=== PATIENT | female | born 1985 | race Caucasian/White ===

== ENCOUNTER → 2017-02-06 | Outpatient (CLI) | payer OTHER ==
[~2017-02-06] MED LIST: FERR325T3 PO; IBUP80TA PO; MOM30SS PO; PERCOCET PO; VITAPRTA PO
[2017-02-06 19:58] LABS: BASO % 0.5 % (0.0-1.0); EOS # 0.1 10^3/uL (0.0-0.50); EOS % 1.9 % (0.0-3.0); IMMATURE GRANULOCYTE % 0.3 % (0-0); LYMPH % 31.5 % (24.0-44.0); MEAN CORPUSCULAR HEMOGLOBIN 30.2 pg (27.0-33.0); MEAN CORPUSCULAR HGB CONC 33.4 g/dl (32.0-36.5); MEAN CORPUSCULAR VOLUME 90.3 fl (80.0-96.0); MONO # 0.6 10^3/uL (0.0-0.8); MONO % 8.8 % (0.0-5.0); NEUTROPHILS # 3.6 10^3/uL (1.8-7.7); PLATELET COUNT, AUTOMATED 259 10^3/uL (150-450); RED CELL DISTRIBUTION WIDTH 11.6 % (11.5-14.5); WHITE BLOOD COUNT 6.3 10^3/uL (4.0-10.0)
[2017-02-08 11:06] LABS: HBsAg Prenatal NEGATIVE (NEGATIVE)
== END ==
LOC: M WUC 16:12
PROVIDERS: ATTEND Obstetrics & Gynecology
DX: Z34.81 Encounter for supervision of other normal pregnancy, first trimester (principal); Z3A.00 Weeks of gestation of pregnancy not specified

== ENCOUNTER → 2017-03-07 | Outpatient (CLI) | payer OTHER ==
--- NOTE | 2017-03-07 15:00 | REP ---
Urinary tract sonogram: History: Left flank pain. Low back and pelvic and perineal pain. Comparison: Comparison CT study May 07, 2013. Findings: Scanning at the level of the urinary bladder shows no abnormality. Renal cortical echogenicity pattern is normal bilaterally and contours are smooth. There is no evidence of hydronephrosis, cyst, mass, or calculus in either kidney. The right kidney measures 9.7 x 5.2 x 3.0 cm. Left renal dimensions are 9.8 x 4.4 x 3.9 cm. Impression: Normal urinary tract sonography. Signed by Lalo Lozada MD 03/07/2017 02:52 P
== END ==
LOC: M RAD 13:25
PROVIDERS: ATTEND Obstetrics & Gynecology
DX: R10.9 Unspecified abdominal pain (principal)

== ENCOUNTER 2017-03-14 12:20 | Emergency (ER) | payer OTHER ==
[~2017-03-14] VITALS: Ht 160 cm; Wt 61.4 kg
[2017-03-14] MEDS ORDERED: NS 1,000 ML IV ONE (15:00)
[2017-03-14 15:41] LABS: BASO # 0.1 10^3/uL (0.0-0.2); BASO % 0.7 % (0.0-1.0); EOS # 0.1 10^3/uL (0.0-0.50); EOS % 1.8 % (0.0-3.0); IMMATURE GRANULOCYTE % 0.3 % (0-0); LYMPH # 2.5 10^3/uL (1.5-4.5); LYMPH % 36.4 % (24.0-44.0); MEAN CORPUSCULAR HEMOGLOBIN 29.9 pg (27.0-33.0); MEAN CORPUSCULAR HGB CONC 33.7 g/dl (32.0-36.5); MEAN CORPUSCULAR VOLUME 88.8 fl (80.0-96.0); MONO # 0.5 10^3/uL (0.0-0.8); NEUTROPHILS # 3.6 10^3/uL (1.8-7.7); NEUTROPHILS % 53.8 % (36.0-66.0); PLATELET COUNT, AUTOMATED 231 10^3/uL (150-450); RED CELL DISTRIBUTION WIDTH 11.9 % (11.5-14.5); WHITE BLOOD COUNT 6.7 10^3/uL (4.0-10.0)
[2017-03-14 15:43] LABS: CONTROL LINE UCG INT CTR LINE PRESENT
[2017-03-14 15:56] LABS: CONTROL LINE HCG INT CTR LINE PRESENT
[2017-03-14 16:02] LABS: ALBUMIN 3.9 GM/DL (3.2-5.2); ALBUMIN/GLOBULIN RATIO 1.22 (1.00-1.93); ALKALINE PHOSPHATASE 49 U/L (45-117); ALT/SGPT 15 U/L (12-78); ANION GAP 7 MEQ/L (8-16); AST/SGOT 13 U/L (7-37); BILIRUBIN,DIRECT < 0.1 MG/DL (0.0-0.2); BILIRUBIN,TOTAL 0.2 MG/DL (0.2-1.0); BLOOD UREA NITROGEN 18 MG/DL (7-18); CALCIUM LEVEL 8.7 MG/DL (8.5-10.1); CARBON DIOXIDE LEVEL 27 MEQ/L (21-32); CHLORIDE LEVEL 103 MEQ/L (98-107); CREATININE FOR GFR 0.83 MG/DL (0.55-1.02); GLOMERULAR FILTRATION RATE > 60.0 (>60); GLUCOSE, FASTING 83 MG/DL (70-105); SODIUM LEVEL 137 MEQ/L (136-145); TOTAL PROTEIN 7.1 GM/DL (6.4-8.2)
[2017-03-14] MEDS ORDERED: ISOVUE-370 76% 100ML VIAL (Q9967) As Ordered ONE (16:04)
--- NOTE | 2017-03-14 16:41 | REP ---
Clinical: Left lower quadrant pain. Comparison: 05/07/2013. Technique: Axial contrast enhanced images from the lung bases to the pubic symphysis using 100 ml Isovue 370 intravenous contrast material with coronal and sagittal re-formations. Findings: Lung bases are clear. Visualized heart and pericardium are normal. Liver, spleen, pancreas, gallbladder, right adrenal gland and bilateral kidneys are normal. The patient is status post left adrenalectomy. The enteric system is without obstruction or definite acute inflammatory process. Normal terminal ileum and appendix are identified in the right lower quadrant. Few sigmoid diverticula are suggested without acute diverticulitis. Evaluation of the pelvis demonstrates an enlarged complex multicystic appearance to the left ovary measuring greater than 4.8 cm diameter and possibly related to patient's symptoms. The uterus and left ovary appear relatively normal. The bladder is unremarkable. No pelvic fluid or ascites. No significant adenopathy. No free air. Abdominal aorta and vasculature appears normal. Surrounding musculoskeletal structures are intact. Impression: 1. Complex cystic enlarged right adnexa measuring 4.8 cm diameter may be related to patient's symptoms and should be correlated clinically. Consider pelvic ultrasound if necessary. 2. Otherwise normal contrast enhanced CT of the abdomen and pelvis. No free fluid. No adenopathy. Evidence of prior left adrenalectomy. Signed by Eugenio Pope MD 03/14/2017 04:33 P
[2017-03-14 17:45] VITALS: BP 125/75
[2017-03-14] MEDS ORDERED: PERC5TAB12 PO (17:45)
--- NOTE | 2017-03-14 19:11 | REP ---
REASON FOR EXAM: Pain. The uterus measures 11 x 5.3 x 5.6 cm. The endometrial echo complex measure 7 mm. The right ovary measures 5.3 x 5.4 x 4.4 cm. In the right ovary there is a 3.5 x 3.8 x 3.1 cm sized mixed echo structure suggestive of a hemorrhagic cyst. The right ovarian RI is 0.56. Left ovary measures 4.5 x 2.3 x 2.6 cm and is within normal limits with an RI of 0.67. IMPRESSION: Suspected right ovarian hemorrhagic cyst as described above. Signed by Berhane Edwards DO 03/14/2017 07:44 P
== END 2017-03-14 18:01 | disposition home or self-care (01) ==
LOC: M ED 12:20
DX: N83.202 Unspecified ovarian cyst, left side (principal); I10 Essential (primary) hypertension; Z88.2 Allergy status to sulfonamides; Z88.1 Allergy status to other antibiotic agents
CPT/HCPCS: 74177; 76856; 80048; 80076; 81001; 83605; 83690; 84703; 85025; 87086; 93976; 96360; 96361; 99284; Q9967

== ENCOUNTER → 2017-12-06 | Outpatient (CLI) | payer BC | LOC: M WUC 12:11 | DX: R06.02 Shortness of breath (principal) | CPT/HCPCS: 71046 ==

== ENCOUNTER → 2017-12-23 | Outpatient (CLI) | payer BC ==
[2017-12-23 20:43] LABS: HCG, SERUM QUANTITATIVE 142 MIU/ML
== END ==
LOC: M WUC 16:09
DX: Z32.01 Encounter for pregnancy test, result positive (principal)
CPT/HCPCS: 84702

== ENCOUNTER → 2018-03-10 | Outpatient (CLI) | payer BC ==
[2018-03-10 18:23] LABS: BASO % 0.3 % (0.0-1.0); EOS # 0.2 10^3/uL (0.0-0.50); EOS % 2.5 % (0.0-3.0); HEMOGLOBIN 11.8 g/dl (12.0-15.5); IMMATURE GRANULOCYTE % 0.7 % (0-3.0); LYMPH % 22.6 % (24.0-44.0); MEAN CORPUSCULAR HEMOGLOBIN 30.3 pg (27.0-33.0); MEAN CORPUSCULAR HGB CONC 32.8 g/dl (32.0-36.5); MEAN CORPUSCULAR VOLUME 92.3 fl (80.0-96.0); MONO # 0.5 10^3/uL (0.0-0.8); MONO % 6.2 % (0.0-5.0); NEUTROPHILS # 5.9 10^3/uL (1.8-7.7); NEUTROPHILS % 67.7 % (36.0-66.0); PLATELET COUNT, AUTOMATED 235 10^3/uL (150-450); RED CELL DISTRIBUTION WIDTH 12.2 % (11.5-14.5); WHITE BLOOD COUNT 8.7 10^3/uL (4.0-10.0)
[2018-03-10 22:30] LABS: CHLAMYDIA DNA AMPLIFICATION NEGATIVE (NEGATIVE); GC DNA AMPLIFICATION NEGATIVE (NEGATIVE)
[2018-03-12 11:03] LABS: HEPATITIS C VIRUS ABY INDEX 0.1 INDEX (<0.8)
[2018-03-12 11:03] LABS: HBsAg Prenatal NEGATIVE (NEGATIVE); HIV 1&2 SCREEN CENTAUR NEGATIVE (NEGATIVE); RUBELLA IgG QUALITATIVE IMMUNE (IMMUNE)
== END ==
LOC: M WUC 14:17
DX: Z36.89 Encounter for other specified antenatal screening (principal)
CPT/HCPCS: 86762

== ENCOUNTER → 2018-04-11 | Outpatient (CLI) | payer BC | LOC: M RAD 12:22 | DX: Z36.89 Encounter for other specified antenatal screening (principal); Z3A.19 19 weeks gestation of pregnancy | CPT/HCPCS: 76811 ==

== ENCOUNTER → 2018-05-26 | Outpatient (CLI) | payer BC ==
[~2018-05-26] MED LIST changes: +PERC5TAB12 PO
--- NOTE | 2018-05-26 17:51 | REP ---
Clinical: Anatomical evaluation. Comparison: 04/11/2018 . Findings: Examination demonstrates a single live intrauterine in cephalic presentation. motion is identified by technologist. Placenta is noted anterior and grade I without evidence for placenta previa or abruption. Amniotic fluid volume is normal. Cervix measures 4.9 cm in length and appears closed. No evidence for nuchal cord. Gestational age by LMP 25 weeks 5 days with JOSEPH 09/03/2018 . Gestational age by current measurements 26 weeks 0 days with JOSEPH 09/01/2018 FHR equals 135 beats per minute. Estimated weight 872 grams ( 49th percentile). Anatomical assessment demonstrates normal structures including cranium, choroid plexus, cavum, cerebellum/posterior fossa, facial features, lungs, four-chamber heart/ventricular outflow tracts, diaphragm, stomach, cord insertion/three-vessel cord, bladder, and extremities. Impression: Single live intrauterine in cephalic presentation demonstrating appropriate interval growth. In conjunction with prior examination anatomical assessment is complete and normal. No gross abnormalities are identified. Electronically Signed by Eugenio Pope MD 05/26/2018 05:43 P
== END ==
LOC: M RAD 16:20
PROVIDERS: ATTEND Advanced Practice Midwife
DX: O34.211 Maternal care for low transverse scar from previous cesarean delivery (principal); Z3A.25 25 weeks gestation of pregnancy

== ENCOUNTER → 2018-06-05 | Outpatient (CLI) | payer BC ==
[2018-06-05 20:05] LABS: HEMATOCRIT 32.5 % (36.0-47.0); MEAN CORPUSCULAR HEMOGLOBIN 31.2 pg (27.0-33.0); MEAN CORPUSCULAR HGB CONC 33.8 g/dl (32.0-36.5); MEAN CORPUSCULAR VOLUME 92.1 fl (80.0-96.0); PLATELET COUNT, AUTOMATED 228 10^3/uL (150-450); RED BLOOD COUNT 3.53 10^6/uL (4.00-5.40); WHITE BLOOD COUNT 11.4 10^3/uL (4.0-10.0)
== END ==
LOC: M WUC 15:13
PROVIDERS: ATTEND Advanced Practice Midwife
DX: O34.211 Maternal care for low transverse scar from previous cesarean delivery (principal)

== ENCOUNTER → 2018-07-14 | Outpatient (CLI) | payer BC ==
[2018-07-14 13:49] LABS: ALBUMIN 2.6 GM/DL (3.2-5.2); ALT/SGPT 18 U/L (12-78); BILIRUBIN,TOTAL 0.2 MG/DL (0.2-1.0); BLOOD UREA NITROGEN 10 MG/DL (7-18); CALCIUM LEVEL 7.7 MG/DL (8.5-10.1); CARBON DIOXIDE LEVEL 23 MEQ/L (21-32); CHLORIDE LEVEL 108 MEQ/L (98-107); CREATININE FOR GFR 0.65 MG/DL (0.55-1.30); FREE T4 0.93 NG/DL (0.76-1.46); GLOMERULAR FILTRATION RATE > 60.0 (>60); GLUCOSE, FASTING 84 MG/DL (70-100); POTASSIUM SERUM 4.1 MEQ/L (3.5-5.1); SODIUM LEVEL 138 MEQ/L (136-145); TOTAL PROTEIN 5.6 GM/DL (6.4-8.2)
== END ==
LOC: M WUC 10:47
PROVIDERS: ATTEND Obstetrics & Gynecology
DX: Z34.83 Encounter for supervision of other normal pregnancy, third trimester (principal)

== ENCOUNTER → 2018-08-07 | Outpatient (REF) | payer BC | LOC: M LAB REF 17:11 | PROVIDERS: ATTEND Advanced Practice Midwife | DX: Z34.83 Encounter for supervision of other normal pregnancy, third trimester (principal) ==

== ENCOUNTER → 2018-08-07 | Outpatient (CLI) | payer BC | LOC: M WUC 10:33 | PROVIDERS: ATTEND Advanced Practice Midwife | DX: Z36.89 Encounter for other specified antenatal screening (principal) ==

== ENCOUNTER 2018-08-27 05:43 | Inpatient (IN) | payer BC ==
[2018-08-27] VITALS (8 sets, daily range): BP systolic 109–130; BP diastolic 59–81
[~2018-08-27] VITALS: Ht 160 cm; Wt 77.8 kg
[~2018-08-27 05:43] MED LIST changes: +PRENTAB55 PO; +ZANTTAB PO
[2018-08-27] MEDS: NS 1,000 ML IV SCH ×2 (06:16→07:17)
[2018-08-27] MEDS: LR 1,000 ML IV SCH ×2 (06:16→14:16)
[2018-08-27] MEDS ORDERED: LACTATED RINGER'S 1000 ML IV STA (06:16)
[2018-08-27] MEDS ORDERED: BICITRA 30ML SOLN UDC PO ONE (06:30)
[2018-08-27 06:42] LABS: HEMOGLOBIN 12.2 g/dl (12.0-15.5); MEAN CORPUSCULAR HEMOGLOBIN 30.3 pg (27.0-33.0); MEAN CORPUSCULAR VOLUME 91.8 fl (80.0-96.0); PLATELET COUNT, AUTOMATED 241 10^3/uL (150-450); RED BLOOD COUNT 4.03 10^6/uL (4.00-5.40); WHITE BLOOD COUNT 9.9 10^3/uL (4.0-10.0)
[2018-08-27] MEDS ORDERED: LR 1,000 ML IV ONE (07:30)
[2018-08-27] MEDS ORDERED: METOCLOPRAMIDE INJ 10MG/2ML VIAL (J2765) IV PRN (07:41)
[2018-08-27] MEDS ORDERED: NALOXONE INJ 0.4 MG/1 ML VIAL (J2310) IV PRN ×2 (07:41)
[2018-08-27] MEDS ORDERED: ONDANSETRON 4MG/2ML VIAL (J2405) IV PRN ×2 (07:41→09:30)
[2018-08-27] MEDS ORDERED: NALBUPHINE HCL 10 MG/ML AMP (J2300) IV PRN (07:41)
[2018-08-27] MEDS ORDERED: diphenhydrAMINE INJ 50MG/ML VIAL (J1200) IV PRN (07:41)
[2018-08-27] MEDS ORDERED: ONDANSETRON 4MG/2ML VIAL (J2405) As Ordered ONE (07:53)
[2018-08-27] MEDS ORDERED: BUPIVACAINE/DEXTROSE 0.75% 2 ML AMP As Ordered ONE (07:53)
[2018-08-27] MEDS ORDERED: MORPHINE PRES-FREE INJ 10 MG/10 ML VIAL (J2274) As Ordered ONE (07:53)
[2018-08-27] MEDS ORDERED: ePHEDrine SULFATE 25 MG/5 ML(5MG/ML) SYRINGE As Ordered ONE (07:53)
[2018-08-27] MEDS ORDERED: OXYTOCIN INJ 10 UNITS/ML VIAL (J2590) As Ordered ONE ×2 (07:53→08:42)
[2018-08-27] MEDS ORDERED: PHENYLephrine HCL 500 MCG/5 ML (100MCG/ML) SYRINGE (J2370) As Ordered ONE (07:53)
[2018-08-27] MEDS ORDERED: MEPERIDINE 50 MG/ML 1ML VIAL (J2175) As Ordered ONE (08:33)
[2018-08-27] MEDS ORDERED: OXYTOCIN 30 UNITS IN 0.9% NaCl 500ML IV BAG (J2590) As Ordered ONE (09:12)
[2018-08-27] MEDS ORDERED: LR 1,000 ML IV SCH ×2 (09:30→09:46)
[2018-08-27] MEDS ORDERED: MEPERIDINE INJ 25 MG/ML VIAL (J2175) IV PRN (09:30)
[2018-08-27] MEDS ORDERED: fentaNYL 100 MCG/2 ML INJECTION (J3010) IV PRN (09:30)
[2018-08-27] MEDS ORDERED: KETOROLAC 30 MG/ML VIAL (J1885) IV PRN (09:45)
[2018-08-27] MEDS ORDERED: OXYTOCIN DRIP 30 UNITS in APPROPRIATE DILUENT 1 EA IV SCH (09:46)
[2018-08-27] MEDS ORDERED: MEPERIDINE INJ 25 MG/ML VIAL (J2175) As Ordered ONE (09:49)
[2018-08-27] MEDS ORDERED: MEASLES,MUMPS,RUBELLA VACCINE INJ (MMR-II) (90707) SC SCH (10:00)
[2018-08-27] MEDS ORDERED: PERCOCET 5MG/325MG TAB PO PRN (10:00)
[2018-08-27] MEDS ORDERED: MOM 30ML SUSPENSION UDC PO PRN (10:00)
[2018-08-27] MEDS ORDERED: RHOGAM 300 MCG (1500 IU) INJ (J2790) IM SCH (10:00)
--- NOTE | 2018-08-27 10:43 | RO ---
DATE OF PROCEDURE: 08/27/2018 PREOPERATIVE DIAGNOSIS: 1. History of prior section. 2. Satisfied parity, undesired fertility. POSTOPERATIVE DIAGNOSIS: 1. History of prior section. 2. Satisfied parity, undesired fertility. PROCEDURE PERFORMED: Repeat section with bilateral tubal ligation using [place] method. SURGEON: Marly Palacios MD FLASK MAKER: Kojo Marlow CNM ANESTHESIA: Spinal. ESTIMATED BLOOD LOSS: 700 mL. INTRAVENOUS FLUIDS: 2200 pounds lactated Ringer's solution. URINE OUTPUT: 50 mL. PREOPERATIVE ANTIBIOTICS: 2 grams of Ancef. OPERATIVE FINDINGS: Live born female infant, Apgars 9 and 10, weight was 8 pounds 12 ounces or 3960 grams. SPECIMENS: Bilateral segments of fallopian tube. DESCRIPTION OF OPERATION: After informed consent was obtained and written consent reviewed, the patient was brought to operating room where spinal anesthesia was placed. She was placed inn lithotomy position with left lateral tilt. Lopez catheter was placed set to gravity. She was then prepped and draped in normal sterile fashion. A time out in the operating room was then performed identifying the patient, the procedure to be performed as well as drug allergies. Anesthesia was tested and deemed to be adequate. Next the previous Pfannenstiel skin incision was then excised. The incision was then carried down to the underlying rectus fascia. The fascia was scored and this incision was extended bilaterally. The fascia was then dissected off the underlying rectus muscles both superiorly and inferiorly. The rectus muscles were in the midline. The peritoneum was then entered sharply. The vesicouterine peritoneum was then tented and excised creating a bladder flap. A Mobius retractor was then placed. A curvilinear incision was then made in the lower uterine segment. The incision was extended bilaterally. Amniotomy was then performed productive of clear fluid. The head was then brought to the level of the incision atraumatically and delivered along with shoulders and corpus. Cord was clamped times two and was cut and infant was taken over to the warmer with good cry. Placenta was then removed and the uterus was exteriorized and cleared of all clots and debris. The uterine incision was then closed using two layers of #0 Vicryl, first in a running locking fashion. followed by a second layer for imbrication in a running nonlocking fashion. There were several [id number] stitches placed along the left side of the uterine incision for hemostasis. Next, attention was then turned to the patient's tubal ligation. A window was created in the right mesosalpinx and this area was doubly ligated with #3-0 chromic and was excised with good hemostasis noted. In a similar fashion, the left fallopian tube was placed on traction. A window was created in the mesosalpinx and this area was doubly ligated with #3-0 chromic and the fallopian tube was transected with good hemostasis noted. The uterus was then returned to the patient's abdomen. Surgical sites were inspected and noted be hemostatic. The anterior peritoneum was then reapproximated #0 Vicryl. The rectus muscle was then reapproximated with #3-0 Vicryl. The fascia was then closed with #0 Vicryl in a running nonlocking fashion. The subcutaneous tissue was then irrigated and suctioned. The subcutaneous tissue was then reapproximated with #3-0 Vicryl. Several subdermal stitches were placed with #3-0 Vicryl. The skin was closed with #4-0 Monocryl in subcuticular fashion. The incision was then clean and dry and was dressed. The patient was then taken to recovery in stable condition. Counts were correct. The couple has decided to name their daughter, Penelope. Kojo Marlow, my rn medical surgical, played an essential role during surgery. She assisted with delivery of the , identification of tissue, retraction, as well as, wound closure.
[2018-08-27] MEDS: PERCOCET 5MG/325MG TAB PO PRN ×2 (11:56→22:06)
[2018-08-27] MEDS: IBUPROFEN 800 MG TAB PO SCH (17:37)
[2018-08-27] MEDS: DOCUSATE SODIUM 100 MG CAP PO SCH (22:06)
[2018-08-27] MEDS: SIMETHICONE 80 MG CHEW TAB PO PRN (22:06)
[2018-08-28] VITALS (7 sets, daily range): BP systolic 108–119; BP diastolic 54–65
[2018-08-28] MEDS: IBUPROFEN 800 MG TAB PO SCH ×3 (02:32→18:06)
[2018-08-28] MEDS: SIMETHICONE 80 MG CHEW TAB PO PRN ×3 (06:16→19:55)
[2018-08-28] MEDS: PERCOCET 5MG/325MG TAB PO PRN ×3 (06:16→19:55)
[2018-08-28 07:24] LABS: HEMATOCRIT 29.9 % (36.0-47.0); MEAN CORPUSCULAR HEMOGLOBIN 30.7 pg (27.0-33.0); MEAN CORPUSCULAR HGB CONC 32.8 g/dl (32.0-36.5); MEAN CORPUSCULAR VOLUME 93.7 fl (80.0-96.0); PLATELET COUNT, AUTOMATED 182 10^3/uL (150-450); RED BLOOD COUNT 3.19 10^6/uL (4.00-5.40); WHITE BLOOD COUNT 15.2 10^3/uL (4.0-10.0)
[2018-08-28 07:26] LABS: HEMOGLOBIN 9.8 g/dl (12.0-15.5)
[2018-08-28] MEDS: PRENATAL VITAMINS CHEWABLE TABLET PO SCH (10:37)
[2018-08-28] MEDS: DOCUSATE SODIUM 100 MG CAP PO SCH ×2 (10:37→19:56)
[2018-08-29 01:50] VITALS: BP 113/61
[2018-08-29] MEDS: IBUPROFEN 800 MG TAB PO SCH ×2 (02:14→09:30)
[2018-08-29] MEDS: PERCOCET 5MG/325MG TAB PO PRN ×3 (05:42→13:07)
[2018-08-29] MEDS ORDERED: IBUP1TAB7 PO (05:42)
[2018-08-29] MEDS ORDERED: OXYC1TAB23 PO ×2 (05:43→08:08)
[2018-08-29 05:45] VITALS: BP 122/70
--- NOTE | 2018-08-29 06:37 | NUR ---
POD#2 S: Doing well w/o complaints. Pain moderately controlled. Tolerating reg diet, + ambulation O: vss, AF Gen: well appearing abd: soft, appropriately tender incision: dressed ext: neg calf tenderness A/P: POD # 2 s/p repeat c/s with BTL- recovering in stable condition -cont routine postoperative care -disposition tomorrow, or later today Marly Palacios MD
[2018-08-29] MEDS ORDERED: COLA100C5 PO (08:08)
[2018-08-29] MEDS ORDERED: SIME40TA PO (08:08)
[2018-08-29] MEDS ORDERED: MOM30SS PO (08:08)
[2018-08-29] MEDS: DOCUSATE SODIUM 100 MG CAP PO SCH (09:29)
[2018-08-29] MEDS: PRENATAL VITAMINS CHEWABLE TABLET PO SCH (09:29)
--- NOTE | 2018-09-03 07:24 | DSES ---
DATE OF ADMISSION: 08/27/2018 DATE OF DISCHARGE: 08/29/2018 DISCHARGE DIAGNOSIS: Repeat section with tubal ligation with satisfied parity with undesired fertility. DISCHARGE CONDITION: Stable. PROCEDURES PERFORMED WHILE IN THE HOSPITAL: 1. section. 2. Bilateral [place] tubal ligation. 3. Spinal anesthesia. DISCHARGE MEDICATIONS: - ibuprofen - Percocet DISCHARGE INSTRUCTIONS: 1. She was instructed to follow-up in 2 weeks for incision check. 2. To report severe pain, heavy vaginal bleeding, fever, incisional issues. HISTORY AND HOSPITAL COURSE: Mrs. Cruz is a 33-year-old with a history prior section who had requested a repeat section and also expressed satisfied parity with undesired fertility. She underwent an uncomplicated section productive of liveborn female , scores 9 and 10. Weight was 8 pounds 12 ounces. Estimated blood loss was 700 mL. She did well postoperatively. By postoperative day 2 had met all discharge criteria and was discharged home in stable condition.
== END 2018-08-29 15:00 | disposition home or self-care (01) | DRG 540 ==
LOC: M LDI 05:43 → M OBS 14:14
PROVIDERS: ADMIT Obstetrics & Gynecology; ATTEND Obstetrics & Gynecology
PROC: 0UB70ZZ Excision of Bilateral Fallopian Tubes, Open Approach (ICD-10-PCS; 2018-08-27)
PROC: 10D00Z1 Extraction of Products of Conception, Low, Open Approach (ICD-10-PCS; principal; 2018-08-27 07:30)
DX: O34.211 Maternal care for low transverse scar from previous cesarean delivery (principal); Z30.2 Encounter for sterilization; Z3A.39 39 weeks gestation of pregnancy; Z37.0 Single live birth

== ENCOUNTER → 2018-10-19 | Outpatient (CLI) | payer BC ==
[~2018-10-19] MED LIST changes: +COLA100C5 PO; +IBUP1TAB7 PO; +OXYC1TAB23 PO; +SIME40TA PO
[2018-10-19 18:37] LABS: BASO % 0.5 % (0.0-1.0); EOS # 0.2 10^3/uL (0.0-0.50); EOS % 3.9 % (0.0-3.0); HEMATOCRIT 38.1 % (36.0-47.0); LYMPH # 1.9 10^3/uL (1.5-4.5); LYMPH % 34.1 % (24.0-44.0); MEAN CORPUSCULAR HEMOGLOBIN 28.2 pg (27.0-33.0); MEAN CORPUSCULAR HGB CONC 31.5 g/dl (32.0-36.5); MEAN CORPUSCULAR VOLUME 89.6 fl (80.0-96.0); MONO # 0.5 10^3/uL (0.0-0.8); MONO % 9.1 % (0.0-5.0); NEUTROPHILS # 2.9 10^3/uL (1.8-7.7); NEUTROPHILS % 52.2 % (36.0-66.0); PLATELET COUNT, AUTOMATED 275 10^3/uL (150-450); RED BLOOD COUNT 4.25 10^6/uL (4.00-5.40); WHITE BLOOD COUNT 5.6 10^3/uL (4.0-10.0)
== END ==
LOC: M WUC 12:45
PROVIDERS: ATTEND Family Medicine
DX: Z00.00 Encounter for general adult medical examination without abnormal findings (principal)

== ENCOUNTER → 2019-04-09 | Outpatient (REF) | payer BC ==
[~2019-04-09] MED LIST changes: +ZANT150T40 PO; -ZANTTAB PO
== END ==
LOC: M SFHCWAGY 17:34
PROVIDERS: ATTEND Obstetrics & Gynecology
DX: Z01.419 Encounter for gynecological examination (general) (routine) without abnormal findings (principal)

== ENCOUNTER → 2019-08-05 | Outpatient (REF) ==
[2019-08-05 11:46] LABS: RUBELLA IgG QUALITATIVE IMMUNE (IMMUNE)
== END ==
LOC: M LAB 10:13
PROVIDERS: ATTEND Nurse Practitioner Adult Health
DX: Z00.00 Encounter for general adult medical examination without abnormal findings (principal)

== ENCOUNTER → 2021-01-26 | Outpatient (RCR) | payer BC, SELFPAY ==
[~2021-01-26] MED LIST changes: -SIME40TA PO; +SIME80CH6 PO
== END ==
LOC: M PT 01-24 07:03
PROVIDERS: ATTEND Otolaryngology
DX: M26.602 Left temporomandibular joint disorder, unspecified (principal)

== ENCOUNTER 2021-02-22 07:40 | Outpatient (RCR) | payer BC | END 2021-02-26 | LOC: M PT 07:40 | PROVIDERS: ATTEND Otolaryngology | DX: M26.602 Left temporomandibular joint disorder, unspecified (principal) ==

== ENCOUNTER 2021-03-22 07:45 | Outpatient (RCR) | payer BC | END 2021-03-28 | LOC: M PT 07:45 | PROVIDERS: ATTEND Otolaryngology | DX: M26.602 Left temporomandibular joint disorder, unspecified (principal) ==

== ENCOUNTER 2021-03-31 11:54 | Outpatient (RCR) | payer BC | END 2021-04-28 | LOC: M PT 11:54 | PROVIDERS: ATTEND Otolaryngology | DX: M26.602 Left temporomandibular joint disorder, unspecified (principal) ==

== ENCOUNTER → 2021-07-27 | Outpatient (REF) | payer BC | LOC: M SFHCWAGY 17:14 | PROVIDERS: ATTEND Obstetrics & Gynecology | DX: Z12.4 Encounter for screening for malignant neoplasm of cervix (principal) ==

== ENCOUNTER → 2022-02-07 | Outpatient (CLI) | payer BC, SELFPAY ==
[2022-02-07 14:42] LABS: BASO % 0.4 % (0.0-1.0); EOS # 0.1 10^3/uL (0.0-0.5); HEMATOCRIT 43.4 % (36.0-47.0); HEMOGLOBIN 14.4 g/dl (12.0-15.5); LYMPH # 1.7 10^3/uL (1.5-5.0); LYMPH % 32.9 % (24.0-44.0); MEAN CORPUSCULAR HEMOGLOBIN 30.4 pg (27.0-33.0); MEAN CORPUSCULAR HGB CONC 33.2 g/dl (32.0-36.5); MEAN CORPUSCULAR VOLUME 91.6 fl (80.0-96.0); MONO # 0.4 10^3/uL (0.0-0.8); MONO % 7.7 % (2.0-8.0); NEUTROPHILS # 2.9 10^3/uL (1.5-8.5); NEUTROPHILS % 56.8 % (36.0-66.0); PLATELET COUNT, AUTOMATED 284 10^3/uL (150-450); RED BLOOD COUNT 4.74 10^6/uL (4.00-5.40); WHITE BLOOD COUNT 5.1 10^3/uL (4.0-10.0)
[2022-02-07 15:12] LABS: ALBUMIN 4.1 GM/DL (3.2-5.2); ALT/SGPT 19 U/L (12-78); BILIRUBIN,TOTAL 0.4 MG/DL (0.2-1.0); BLOOD UREA NITROGEN 11 MG/DL (7-18); CALCIUM LEVEL 9.1 MG/DL (8.5-10.1); CARBON DIOXIDE LEVEL 29 MEQ/L (21-32); CHLORIDE LEVEL 105 MEQ/L (98-107); CREATININE FOR GFR 0.84 MG/DL (0.55-1.30); GLOMERULAR FILTRATION RATE > 60.0 (>60); GLUCOSE, FASTING 91 MG/DL (70-100); POTASSIUM SERUM 4.2 MEQ/L (3.5-5.1); SODIUM LEVEL 139 MEQ/L (136-145); TOTAL PROTEIN 7.3 GM/DL (6.4-8.2)
== END ==
LOC: M RAD 11:58
PROVIDERS: ATTEND Physician Assistant
DX: R31.9 Hematuria, unspecified (principal); M54.50 Low back pain, unspecified

== ENCOUNTER → 2022-03-15 | Outpatient (CLI) | payer BC ==
[2022-03-15 11:48] LABS: BASO # 0.1 10^3/uL (0.0-0.2); BASO % 0.7 % (0.0-1.0); EOS # 0.1 10^3/uL (0.0-0.5); EOS % 1.5 % (0.0-3.0); HEMOGLOBIN 14.3 g/dl (12.0-15.5); LYMPH # 2.1 10^3/uL (1.5-5.0); LYMPH % 28.9 % (24.0-44.0); MEAN CORPUSCULAR HEMOGLOBIN 30.3 pg (27.0-33.0); MEAN CORPUSCULAR HGB CONC 32.5 g/dl (32.0-36.5); MEAN CORPUSCULAR VOLUME 93.2 fl (80.0-96.0); MONO # 0.8 10^3/uL (0.0-0.8); MONO % 10.5 % (2.0-8.0); NEUTROPHILS # 4.2 10^3/uL (1.5-8.5); NEUTROPHILS % 57.4 % (36.0-66.0); PLATELET COUNT, AUTOMATED 277 10^3/uL (150-450); RED BLOOD COUNT 4.72 10^6/uL (4.00-5.40); WHITE BLOOD COUNT 7.2 10^3/uL (4.0-10.0)
[2022-03-15 12:45] LABS: ALBUMIN 3.9 G/DL (3.2-5.2); ALT/SGPT 13 U/L (7.0-40); BILIRUBIN,TOTAL 0.3 MG/DL (0.3-1.2); BLOOD UREA NITROGEN 18 MG/DL (9-23); CALCIUM LEVEL 9.6 MG/DL (8.5-10.1); CARBON DIOXIDE LEVEL 28 MMOL/L (20-31); CHLORIDE LEVEL 102 MMOL/L (98-107); CREATININE FOR GFR 0.85 MG/DL (0.55-1.30); GLOMERULAR FILTRATION RATE > 60.0 (>60); GLUCOSE, FASTING 83 MG/DL (60-100); POTASSIUM SERUM 4.1 MMOL/L (3.5-5.1); SODIUM LEVEL 138 MMOL/L (136-145); TOTAL PROTEIN 6.6 G/DL (5.7-8.2)
== END ==
LOC: M RAD 10:48
PROVIDERS: ATTEND Nurse Practitioner Family
DX: M53.84 Other specified dorsopathies, thoracic region (principal)

== ENCOUNTER → 2022-03-19 | Outpatient (CLI) | payer BC | LOC: M RAD 08:15 | PROVIDERS: ATTEND Registered Nurse | DX: R10.11 Right upper quadrant pain (principal) ==

== ENCOUNTER 2022-04-13 14:11 | Emergency (ER) | payer BC ==
[~2022-04-13] VITALS: Ht 160 cm; Wt 70.2 kg
[2022-04-13] MEDS ORDERED: methylPREDNISolone 125MG 2ML VIAL IV ONE (15:20)
[2022-04-13] MEDS ORDERED: FAMOTIDINE 20MG/2ML VIAL IVP ONE (15:20)
[2022-04-13 15:53] LABS: BASO # 0.1 10^3/uL (0.0-0.2); BASO % 0.7 % (0.0-1.0); EOS # 0.1 10^3/uL (0.0-0.5); EOS % 1.7 % (0.0-3.0); HEMATOCRIT 42.3 % (36.0-47.0); HEMOGLOBIN 14.3 g/dl (12.0-15.5); LYMPH # 1.8 10^3/uL (1.5-5.0); LYMPH % 23.9 % (24.0-44.0); MEAN CORPUSCULAR HEMOGLOBIN 30.9 pg (27.0-33.0); MEAN CORPUSCULAR HGB CONC 33.8 g/dl (32.0-36.5); MEAN CORPUSCULAR VOLUME 91.4 fl (80.0-96.0); MONO # 0.5 10^3/uL (0.0-0.8); MONO % 6.5 % (2.0-8.0); NEUTROPHILS # 5.1 10^3/uL (1.5-8.5); NEUTROPHILS % 66.9 % (36.0-66.0); PLATELET COUNT, AUTOMATED 242 10^3/uL (150-450); RED BLOOD COUNT 4.63 10^6/uL (4.00-5.40); WHITE BLOOD COUNT 7.7 10^3/uL (4.0-10.0)
[2022-04-13 16:28] LABS: BLOOD UREA NITROGEN 19 MG/DL (9-23); CALCIUM LEVEL 9.2 MG/DL (8.5-10.1); CARBON DIOXIDE LEVEL 23 MMOL/L (20-31); CHLORIDE LEVEL 103 MMOL/L (98-107); CREATININE FOR GFR 0.87 MG/DL (0.55-1.30); GLOMERULAR FILTRATION RATE > 60.0 (>60); GLUCOSE, FASTING 96 MG/DL (60-100); POTASSIUM SERUM 3.6 MMOL/L (3.5-5.1); SODIUM LEVEL 137 MMOL/L (136-145)
[2022-04-13] MEDS ORDERED: PRED20TA PO (17:12)
[2022-04-13 17:31] VITALS: BP 142/84
== END 2022-04-13 17:32 | disposition home or self-care (01) ==
LOC: M ED 14:11
DX: L50.9 Urticaria, unspecified (principal); H02.849 Edema of unspecified eye, unspecified eyelid; R07.89 Other chest pain; I10 Essential (primary) hypertension; Z88.2 Allergy status to sulfonamides
CPT/HCPCS: 36415; 71046; 80048; 84702; 85025; 85379; 96374; 96375; 99284; J2930

== ENCOUNTER → 2022-05-29 | Outpatient (RCR) | payer BC ==
[~2022-05-29] MED LIST changes: +PRED20TA PO
== END ==
LOC: M PT 05-25 07:45
PROVIDERS: ATTEND Family Medicine
DX: M54.50 Low back pain, unspecified (principal)

== ENCOUNTER → 2022-06-18 | Outpatient (CLI) | payer BC | LOC: M WHC 07:04 | PROVIDERS: ATTEND Family Medicine | DX: K82.8 Other specified diseases of gallbladder (principal) ==

== ENCOUNTER 2022-06-20 06:58 | Outpatient (RCR) | payer BC | END 2022-06-26 | LOC: M PT 06:58 | PROVIDERS: ATTEND Family Medicine | DX: M54.50 Low back pain, unspecified (principal) ==

== ENCOUNTER 2022-07-23 06:58 | Outpatient (RCR) | payer BC | END 2022-07-27 | LOC: M PT 06:58 | PROVIDERS: ATTEND Family Medicine | DX: M54.50 Low back pain, unspecified (principal) ==

== ENCOUNTER → 2022-08-24 | Outpatient (REF) | payer BC | LOC: M SFHCWAGY 17:12 | PROVIDERS: ATTEND Obstetrics & Gynecology | DX: Z01.419 Encounter for gynecological examination (general) (routine) without abnormal findings (principal); Z77.9 Other contact with and (suspected) exposures hazardous to health; Z12.4 Encounter for screening for malignant neoplasm of cervix ==

== ENCOUNTER → 2023-02-21 | Outpatient (REF) | payer BC | LOC: M LAB REF 16:19 | PROVIDERS: ATTEND Nurse Practitioner Family | DX: R30.0 Dysuria (principal) ==

== ENCOUNTER 2023-09-08 14:22 | Emergency (ER) | payer BC ==
[~2023-09-08] VITALS: Ht 160 cm; Wt 66.0 kg
[2023-09-08] MEDS ORDERED: diphenhydrAMINE 12.5MG/5ML ELIXIR UDC PO ONE (16:40)
[2023-09-08] MEDS: FAMOTIDINE 20MG/2ML VIAL IVP ONE (17:19)
[2023-09-08] MEDS: methylPREDNISolone 40MG 1ML VIAL IV ONE (17:19)
[2023-09-08] MEDS: diphenhydrAMINE 50MG/ML VIAL IV STA (17:19)
[2023-09-08] MEDS: NS 1,000 ML IV ONE (17:20)
[2023-09-08] MEDS ORDERED: [UNRECOGNIZED DRUG - CODE] IM (18:53)
[2023-09-08] MEDS ORDERED: PRED20TA PO (18:56)
[2023-09-08 19:20] VITALS: BP 123/79; TEMP 99.4; O2SAT 100
== END 2023-09-08 19:23 | disposition home or self-care (01) ==
LOC: M ED 14:22
DX: L23.9 Allergic contact dermatitis, unspecified cause (principal); Z88.0 Allergy status to penicillin; Z88.2 Allergy status to sulfonamides; Z79.899 Other long term (current) drug therapy; Z79.52 Long term (current) use of systemic steroids
CPT/HCPCS: 96361; 96374; 99284; J1200; J2919; S0028

== ENCOUNTER → 2023-09-09 | Outpatient (REF) | payer BC ==
[~2023-09-09] MED LIST changes: +BENA25CA4 PO; +PEPC1TAB5 PO; +[UNRECOGNIZED DRUG - CODE] IM
== END ==
LOC: M SFHCWAGY 17:18
PROVIDERS: ATTEND Obstetrics & Gynecology
DX: Z01.419 Encounter for gynecological examination (general) (routine) without abnormal findings (principal)

== ENCOUNTER 2023-09-10 01:42 | Emergency (ER) | payer BC ==
[~2023-09-10 01:42] MED LIST changes: -BENA25CA4 PO; -PEPC1TAB5 PO
[2023-09-10] MEDS: diphenhydrAMINE 50MG/ML VIAL IV ONE (02:24)
[2023-09-10] MEDS: methylPREDNISolone 125MG 2ML VIAL IV ONE (02:24)
[2023-09-10] MEDS: FAMOTIDINE 20MG/2ML VIAL IVP ONE (02:24)
[2023-09-10] MEDS: NS 1,000 ML IV ONE (02:24)
[2023-09-10 03:03] LABS: BASO % 0.1 % (0.0-1.0); EOS % 0.1 % (0.0-3.0); HEMATOCRIT 37.3 % (36.0-47.0); HEMOGLOBIN 12.8 g/dl (12.0-15.5); LYMPH # 3.3 10^3/uL (1.5-5.0); LYMPH % 23.7 % (24.0-44.0); MEAN CORPUSCULAR HEMOGLOBIN 31.1 pg (27.0-33.0); MEAN CORPUSCULAR HGB CONC 34.3 g/dl (32.0-36.5); MEAN CORPUSCULAR VOLUME 90.5 fl (80.0-96.0); MONO # 0.7 10^3/uL (0.0-0.8); MONO % 5.1 % (2.0-8.0); NEUTROPHILS # 9.9 10^3/uL (1.5-8.5); NEUTROPHILS % 70.6 % (36.0-66.0); PLATELET COUNT, AUTOMATED 277 10^3/uL (150-450); RED BLOOD COUNT 4.12 10^6/uL (4.00-5.40)
[2023-09-10 03:21] LABS: BLOOD UREA NITROGEN 14 MG/DL (9-23); CARBON DIOXIDE LEVEL 24 MMOL/L (20-31); CHLORIDE LEVEL 108 MMOL/L (98-107); CREATININE FOR GFR 0.77 MG/DL (0.55-1.30); GLOMERULAR FILTRATION RATE > 60.0 (>58); GLUCOSE, FASTING 101 MG/DL (60-100); MAGNESIUM LEVEL 1.8 MG/DL (1.8-2.4); PHOSPHORUS LEVEL 2.5 MG/DL (2.5-4.9); POTASSIUM SERUM 3.3 MMOL/L (3.5-5.1); SODIUM LEVEL 141 MMOL/L (136-145)
[2023-09-10] MEDS ORDERED: BENA25CA4 PO (07:31)
[2023-09-10] MEDS ORDERED: PEPC1TAB5 PO (07:31)
[2023-09-10 08:19] VITALS: BP 135/90; TEMP 98.5; O2SAT 98
[2023-09-12 19:07] LABS: C1 ESTER INHIB. NON FUNCTIONAL 30 mg/dL (21-39); C1 ESTERASE INHIB. FUNCTIONAL > 110 (.); TRYPTASE 7.3 ug/L (2.2-13.2)
== END 2023-09-10 08:23 | disposition home or self-care (01) ==
LOC: M ED 01:42
DX: R22.0 Localized swelling, mass and lump, head (principal); L50.9 Urticaria, unspecified; T36.0X5A Adverse effect of penicillins, initial encounter; Z88.0 Allergy status to penicillin; Z88.2 Allergy status to sulfonamides
CPT/HCPCS: 80048; 83519; 83735; 84100; 85025; 86160; 86161; 96374; 96375; 99284; J1200; J2919; S0028

== ENCOUNTER → 2023-10-09 | Outpatient (CLI) | payer BC ==
[~2023-10-09] MED LIST changes: +BENA25CA4 PO; +PEPC1TAB5 PO
== END ==
LOC: M WHC 07:24
PROVIDERS: ATTEND Obstetrics & Gynecology
DX: Z12.31 Encounter for screening mammogram for malignant neoplasm of breast (principal); N93.9 Abnormal uterine and vaginal bleeding, unspecified

== ENCOUNTER → 2023-10-10 | Outpatient (REF) ==
[2023-10-10 14:15] LABS: APPEARANCE, URINE CLEAR (CLEAR); BACTERIA, URINE AUTO NEGATIVE (NEGATIVE); BILIRUBIN, URINE AUTO NEGATIVE (NEGATIVE); BLOOD, URINE BLOOD NEGATIVE (NEGATIVE); COLOR, URINE YELLOW (YELLOW); GLUCOSE, URINE (UA) AUTO NEGATIVE (NEGATIVE); KETONE, URINE AUTO NEGATIVE (NEGATIVE); LEUKOCYTE ESTERASE, URINE AUTO NEGATIVE (NEGATIVE); NITRITE, URINE AUTO NEGATIVE (NEGATIVE); PROTEIN, URINE AUTO NEGATIVE (NEGATIVE); RBC, URINE AUTO 0 /HPF (0-3); SPECIFIC GRAVITY URINE AUTO 1.016 (1.002-1.035); SQUAMOUS EPITHELIAL CELL UR AU 0 /HPF (0-6); UROBILINOGEN, URINE AUTO 0.2 mg/dL (0.0-2.0); WBC, URINE AUTO 0 /HPF (0-3)
[2023-10-10 14:17] LABS: BASO % 0.6 % (0.0-1.0); EOS # 0.2 10^3/uL (0.0-0.5); EOS % 2.7 % (0.0-3.0); HEMATOCRIT 39.7 % (36.0-47.0); HEMOGLOBIN 13.5 g/dl (12.0-15.5); LYMPH # 2.3 10^3/uL (1.5-5.0); LYMPH % 35.3 % (24.0-44.0); MEAN CORPUSCULAR HEMOGLOBIN 31.1 pg (27.0-33.0); MEAN CORPUSCULAR VOLUME 91.5 fl (80.0-96.0); MONO # 0.5 10^3/uL (0.0-0.8); MONO % 7.4 % (2.0-8.0); NEUTROPHILS # 3.6 10^3/uL (1.5-8.5); NEUTROPHILS % 53.8 % (36.0-66.0); PLATELET COUNT, AUTOMATED 296 10^3/uL (150-450); RED BLOOD COUNT 4.34 10^6/uL (4.00-5.40); WHITE BLOOD COUNT 6.6 10^3/uL (4.0-10.0)
[2023-10-10 14:43] LABS: THYROID STIMULATING HORMONE 1.178 uIU/ML (0.55-4.78)
[2023-10-10 14:44] LABS: ALBUMIN 3.6 G/DL (3.2-5.2); ALKALINE PHOSPHATASE 58 U/L (46-116); ALT/SGPT 16 U/L (7.0-40); AST/SGOT < 8 U/L (<34); BILIRUBIN,TOTAL 0.3 MG/DL (0.3-1.2); BLOOD UREA NITROGEN 16 MG/DL (9-23); CALCIUM LEVEL 9.3 MG/DL (8.5-10.1); CARBON DIOXIDE LEVEL 30 MMOL/L (20-31); CHLORIDE LEVEL 104 MMOL/L (98-107); CREATININE FOR GFR 0.81 MG/DL (0.55-1.30); GLOMERULAR FILTRATION RATE > 60.0 (>58); GLUCOSE, FASTING 102 MG/DL (60-100); POTASSIUM SERUM 3.7 MMOL/L (3.5-5.1); SODIUM LEVEL 138 MMOL/L (136-145); TOTAL PROTEIN 6.4 G/DL (5.7-8.2)
== END ==
LOC: M LAB 13:39
PROVIDERS: ATTEND Nurse Practitioner Adult Health
DX: Z00.00 Encounter for general adult medical examination without abnormal findings (principal)

== ENCOUNTER 2023-11-14 10:48 | Day surgery (SDC) | payer BC ==
[~2023-11-14] VITALS: Ht 160 cm; Wt 66.2 kg
[2023-11-14 11:20] LABS: HEMATOCRIT 43.9 % (36.0-47.0); HEMOGLOBIN 14.6 g/dl (12.0-15.5); MEAN CORPUSCULAR HEMOGLOBIN 30.5 pg (27.0-33.0); MEAN CORPUSCULAR HGB CONC 33.3 g/dl (32.0-36.5); MEAN CORPUSCULAR VOLUME 91.8 fl (80.0-96.0); PLATELET COUNT, AUTOMATED 247 10^3/uL (150-450); RED BLOOD COUNT 4.78 10^6/uL (4.00-5.40); WHITE BLOOD COUNT 5.9 10^3/uL (4.0-10.0)
[2023-11-14] MEDS ORDERED: CETI10CA2 PO (11:21)
[2023-11-14] MEDS ORDERED: PEPC1TAB5 PO (11:21)
[2023-11-14] MEDS ORDERED: propofoL 200 MG/20 ML VIAL As Ordered ONE (12:35)
[2023-11-14] MEDS ORDERED: MIDAZOLAM INJ 2MG/2ML VIAL As Ordered ONE (12:35)
[2023-11-14] MEDS ORDERED: LIDOCAINE 2% 100MG/5ML SDV (FOR ANES.) As Ordered ONE (12:35)
[2023-11-14] MEDS ORDERED: fentaNYL 100 MCG/2 ML INJECTION As Ordered ONE (12:35)
[2023-11-14] MEDS ORDERED: ACETAMINOPHEN 1000MG 100ML IV BAG As Ordered ONE (12:44)
[2023-11-14] MEDS ORDERED: ONDANSETRON 4MG 2ML VIAL As Ordered ONE (12:49)
[2023-11-14] MEDS ORDERED: KETOROLAC 60MG 2ML VIAL As Ordered ONE (12:49)
[2023-11-14] MEDS: oxyCODONE 5MG TAB PO PRN (15:03)
[2023-11-14 15:46] VITALS: BP 126/76; TEMP 98.3; O2SAT 99
== END 2023-11-14 16:06 | disposition home or self-care (01) ==
LOC: M SDC 10:48
PROVIDERS: ATTEND Obstetrics & Gynecology
DX: N93.9 Abnormal uterine and vaginal bleeding, unspecified (principal); N84.0 Polyp of corpus uteri; E89.6 Postprocedural adrenocortical (-medullary) hypofunction; Z98.51 Tubal ligation status; Z86.018 Personal history of other benign neoplasm; Z88.0 Allergy status to penicillin; Z88.2 Allergy status to sulfonamides; Z90.89 Acquired absence of other organs
CPT/HCPCS: 36415; 58563; 85027; 86850; 86870; 86900; 86901; 88305; J0131; J1100; J1885; J2250; J2405; J3010

== ENCOUNTER → 2024-12-07 | Outpatient (CLI) | payer BC ==
[~2024-12-07] MED LIST changes: +CETI10CA2 PO
== END ==
LOC: M WHC 16:45
PROVIDERS: ATTEND Obstetrics & Gynecology
DX: Z12.31 Encounter for screening mammogram for malignant neoplasm of breast (principal)

== ENCOUNTER → 2025-03-02 | Outpatient (CLI) | payer BC ==
[2025-03-02 07:54] LABS: BASO # 0.0 10^3/uL (0.0-0.2); BASO % 0.8 % (0.0-1.0); EOS # 0.2 10^3/uL (0.0-0.5); EOS % 4.7 % (0.0-3.0); LYMPH # 1.6 10^3/uL (1.5-5.0); LYMPH % 31.6 % (24.0-44.0); MONO # 0.5 10^3/uL (0.0-0.8); MONO % 8.9 % (2.0-8.0); NEUTROPHILS # 2.7 10^3/uL (1.5-8.5); NEUTROPHILS % 53.6 % (36.0-66.0); PLATELET COUNT, AUTOMATED 257 10^3/uL (150-450)
[2025-03-02 08:23] LABS: IRON (FE) 122.0 UG/DL (50-170)
[2025-03-02 08:24] LABS: ALT/SGPT 16.0 U/L (7.0-40); AST/SGOT 14.0 U/L (<34); CALCIUM LEVEL 8.6 MG/DL (8.5-10.1); CARBON DIOXIDE LEVEL 29.0 MMOL/L (20-31); CHLORIDE LEVEL 104.0 MMOL/L (98-107); CHOLESTEROL LEVEL 193.0 MG/DL (<200); CHOLESTEROL RISK RATIO 3.17 (<5); CREATININE FOR GFR 0.86 MG/DL (0.55-1.30); GLOMERULAR FILTRATION RATE 87.0 (>58); LDL CHOLESTEROL 113.6 MG/DL (<100); MAGNESIUM LEVEL 1.9 MG/DL (1.8-2.4); NON-HDL-C 132.2 MG/DL; PERCENT SATURATION 52.6 % (13.2-45.0); POTASSIUM SERUM 4.2 MMOL/L (3.5-5.1); SODIUM LEVEL 138.0 MMOL/L (136-145); TRIGLYCERIDES LEVEL 93.0 MG/DL (<150)
[2025-03-02 08:25] LABS: FREE T4 1.3 NG/DL (0.89-1.76); TOTAL 25(OH) VITAMIN D 45.6 NG/ML (20.0-100.0)
== END ==
LOC: M LAB 07:17
PROVIDERS: ATTEND Nurse Practitioner Family
DX: R00.2 Palpitations (principal)